=== PATIENT | male | born 1935 | race Caucasian/White ===

== ENCOUNTER 2022-10-19 00:42 | Emergency (ER) | payer MEDICARE, BC, SELFPAY ==
[2022-10-19 00:47] VITALS: BP 184/80; PULSE 61; RESP 16; TEMP 36.1; O2SAT 96
--- NOTE | 2022-10-19 01:04 | ED_ITS ---
HPI - General Adult General Time Seen by Provider: 01:04 Date Seen: 10/19/22 Chief complaint: Back Injury/Pain Stated complaint: bad sciatic nerve, swelling at the feet Time Seen by Provider: 10/19/22 00:56 Source: patient, RN notes reviewed and old records reviewed Mode of arrival: ambulatory Limitations: no limitations History of Present Illness HPI narrative: 87-year-old male who comes in with about 1 week of left-sided low back pain radiating to the left leg as well as swelling the feet and legs. No new injury but does have a distant history of some back problems. Was seen by his primary provider for this and started on prednisone, took one dose of noted swelling in his legs so he stopped. No bowel or bladder incontinence, no numbness or tingling. Difficulty getting comfortable. Also increasing lower extremity swelling for the last 4 days. Denies chest pain or shortness of breath. Legs feel tight. Related Data Previous Rx's Medication Instructions Recorded furosemide 40 mg tablet (Lasix) 40 mg PO DAILY #5 tabs 10/19/22 Allergies Allergy/AdvReac Type Severity Reaction Status Date / Time No Known Drug Allergies Allergy Verified 10/19/22 00:50 Review of Systems Status of ROS: Reports: 10 or more systems reviewed and unremarkable except as noted in History and below PFSH PFS Social History Smoking Status: Never smoker Do you use any of these nicotine containing products: None How often do you have a drink containing alcohol: never AUDIT-C Alcohol total score: 0 Non-prescribed substance use: denies use Exam Narrative: Exam Narrative: General: Well-developed and well-nourished, no acute distress Head: Atraumatic and normocephalic Eyes: Pupils are equal reactive, extraocular motions intact, conjunctiva clear ENT: External nose and ears are normal, posterior pharynx without erythema or exudate Neck: No midline cervical tenderness, full spontaneous range of motion the neck, trachea midline, no adenopathy Heart: Regular rate and rhythm no murmurs or thrills Lungs: Clear to auscultation bilaterally without wheezes or crackles Abdomen: Soft, nontender, nondistended with active bowel sounds Musculoskeletal: Left sciatic tenderness. Moderate bilateral lower extremity edema to the knees with some serous weeping on the right. Neurologic: Awake, alert, and oriented x3, no gross focal neurologic deficits, cranial nerves intact as tested Psych: Mood and affect are appropriate Skin: No rashes Const: Vital Signs, click to edit/add: Vital Signs - 24 hr 10/19/22 00:47 10/19/22 02:30 Temperature 97.0 F L Pulse Rate [Left P ulse Oximeter] 61 70 Respiratory Rate 16 18 Blood Pressure [Ri ght Upper Arm] 184/80 H 162/67 H Pulse Oximetry 96 96 Oxygen Delivery Me thod Room Air Room Air Course Course Hospital Course: Patient seen and examined, prior records reviewed. Patient presents with lower back pain radiating to the left leg. Differential diagnosis includes but not limited to fracture, herniated disc, spinal epidural abscess, cauda equina syndrome. Atraumatic back pain, strength and sensation of leg or intact, pain with straight leg raise. No history of trauma in given unilateral symptoms with tenderness in the left SI area, symptoms are most consistent with lumbar radiculopathy. Patient was given Toradol and Decadron in the emergency department. Also bilateral lower extremity swelling, in discussion with patient's spouse he is on lisinopril, spironolactone, Lasix among others. He takes Lasix 20 mg every other day. Labs ordered to evaluate for renal or cardiac disease contributing to increased lower extremity swelling although this may be secondary to decreased mobility related to his back pain. Also consider stopping amlodipine due to edema. Lasix 40 mg IV will be given in the emergency department. Reevaluation(s) Time of Reevaluation #1: 02:02 Reevaluation #1: Labs independently interpreted by me with reassuring basic metabolic panel, creatinine is high normal. BNP is reassuring. Lower extremity swelling is likely fluid retention from poor mobilization. Will have the patient increase his Lasix for couple of days and should take his pain medication as prescribed. On recheck, he is still having some pain is back. [place] is ordered, patient is asking to get up and move around a little bit so will do a trial of ambulation as well. Vital Signs Vital signs: Initial Vital Signs Temperature 97.0 F L 10/19/22 00:47 Temperature Source Temporal Artery Scan 10/19/22 00:47 Pulse Rate 61 10/19/22 00:47 Pulse Rhythm Regular 10/19/22 00:47 Respiratory Rate 16 10/19/22 00:47 Blood Pressure 184/80 H 10/19/22 00:47 Blood Pressure Mean 114 H 10/19/22 00:47 Blood Pressure Position Sitting 10/19/22 00:47 Pulse Oximetry 96 10/19/22 00:47 Oxygen Delivery Method Room Air 10/19/22 00:47 Vital Signs Temperature 97.0 F L 10/19/22 00:47 Pulse Rate 61 10/19/22 00:47 Respiratory Rate 16 10/19/22 00:47 Blood Pressure 184/80 H 10/19/22 00:47 Pulse Oximetry 96 10/19/22 00:47 Oxygen Delivery Method Room Air 10/19/22 00:47 Temperature 97.0 F L 10/19/22 00:47 Pulse Rate 70 10/19/22 02:30 Respiratory Rate 18 10/19/22 02:30 Blood Pressure 162/67 H 10/19/22 02:30 Pulse Oximetry 96 10/19/22 02:30 Oxygen Delivery Method Room Air 10/19/22 02:30 Medical Decision Making Medical Records Medical records reviewed: Yes I reviewed the patient's medical records Lab Data Lab results reviewed: Yes I reviewed the patient's lab results Labs: Lab Results 10/19/22 Range/Units 01:30 Sodium 138 (135-149) mmol/L Potassium 3.8 (3.6-5.1) mmol/L Chloride 106 (96-114) mmol/L Carbon Dioxide 24 (20-32) mmol/L BUN 28 (7-30) mg/dL Creatinine 1.3 (0.5-1.5) mg/dL Estimated GFR 54 ml/min Glucose 116 H (60-115) mg/dL Calcium 9.0 (8.4-10.6) mg/dL NT-Pro-B Natriuret Pep 575 pg/mL Discharge Plan Discharge Clinical Impression: Bilateral edema of lower extremity, Lumbar radiculopathy Patient Disposition: Home w/ Parent or Adult Condition: Stable Instructions: Lumbar Radiculopathy (ED), Edema (ED) Additional Instructions: Increase Lasix to 40 mg daily Stop taking amlodipine Elevate the legs is able Continue pain medication as needed Follow-up with your doctor this week Discharge Diet: Regular Prescriptions: New furosemide [Lasix] 40 mg tablet 40 mg PO DAILY Qty: 5 0RF Follow Up/Referrals: Fannie Webster DO [Primary Care Provider] - Stand Alone [facility]: [facility]
[2022-10-19] MEDS: dexAMETHasone 10 MG/ML inj IVP (01:35)
[2022-10-19] MEDS: KETOROLAC 15 MG/ML inj IVP (01:35)
[2022-10-19] MEDS: FUROSEMIDE 10 MG/ML inj 40 MG IVP (01:36)
[2022-10-19 01:55] LABS: Chloride* 106 mmol/L (96-114); Sodium* 138 mmol/L (135-149)
[2022-10-19 01:56] LABS: Potassium* 3.8 mmol/L (3.6-5.1)
[2022-10-19 01:58] LABS: Carbon Dioxide* 24 mmol/L (20-32); Creatinine* 1.3 mg/dL (0.5-1.5); Estimated Glomerular Filt Rate 54 ml/min
[2022-10-19 01:59] LABS: Blood Urea Nitrogen* 28 mg/dL (7-30); Glucose* 116 mg/dL (60-115)
[2022-10-19 02:09] LABS: NT Pro B Type NatriureticPept* 575 pg/mL
[2022-10-19] MEDS: HYDROCODONE-ACETAMIN 5-325 MG 1 TAB PO (02:25)
[2022-10-19 02:30] VITALS: BP 162/67; PULSE 70; RESP 18; O2SAT 96
== END 2022-10-19 03:12 | disposition home or self-care (01) ==
PROVIDERS: Emergency Provider Family Medicine; PCP Family Medicine
DX: R60.9 Edema, unspecified (principal); M54.16 Radiculopathy, lumbar region
CPT/HCPCS: 36415; 80048; 83880; 96374; 96375; 99284; A9270; J1100; J1885; J1940